=== PATIENT | female | born 1965 | race Caucasian/White ===

== ENCOUNTER → 2017-07-05 | Outpatient (CLI) | payer BC ==
--- NOTE | 2017-07-05 10:16 | RAD ---
Abdominal ultrasound, 07/05/2017: History: Right upper quadrant pain The gallbladder is within normal limits in size. There is no sonographic evidence of cholelithiasis. The gallbladder benson are not thickened. No bile duct dilatation is seen. The liver measures 20.7 cm in craniocaudad extent. It demonstrates mildly increased echogenicity in a diffuse pattern, most commonly due to fatty change. No hepatic mass is evident. In the transverse plane there is a suggestion of a 2 cm hypoechoic process within the pancreatic body. The spleen is of normal size. No renal abnormality is detected. The abdominal aorta and inferior vena cava show no abnormality. No free fluid is evident in the abdomen. IMPRESSION: 1. Mild hepatomegaly with increased hepatic echogenicity suggesting fatty change. 2. Possible pancreatic mass. CT scanning is suggested for further evaluation.
== END | disposition home or self-care (01) ==
LOC: US 07:36
PROVIDERS: ATTEND Specialist
DX: R16.0 Hepatomegaly, not elsewhere classified (principal)
CPT/HCPCS: 76700

== ENCOUNTER → 2017-07-12 | Outpatient (CLI) | payer BC ==
[~2017-07-12] VITALS: Ht 162.6 cm; Wt 111.6 kg
[~2017-07-12] MED LIST: ALPR0.5T PO; BUPR100T7 PO; ESTR1PAT25 TD; HYDR-2165 PO; LOSA1TAB19 PO; NORMAL SALINE IV ONE; SINCALIDE IV ONE
--- NOTE | 2017-07-12 12:58 | RAD ---
Radionuclide hepatobiliary scan with gallbladder ejection fraction, 07/12/2017: History: Right upper quadrant pain Following IV injection of 5.3 mCi of technetium 99m Choletec there was prompt uptake of the radionuclide from the blood stream by the liver. Activity is present in the bile ducts and gallbladder at 15 minutes. Over the first hour there was increasing activity in the gallbladder without extension into the small bowel. Following IV injection of 2.2 mcg of cholecystokinin there was good gallbladder emptying with the gallbladder ejection fraction calculated at 89%. Small bowel activity developed after the cholecystokinin injection. IMPRESSION: 1. No evidence of cystic duct or common bile duct obstruction. 2. The gallbladder ejection fraction is 89%.
== END | disposition home or self-care (01) ==
LOC: NM 08:51
PROVIDERS: ATTEND Family Medicine
DX: R93.5 Abnormal findings on diagnostic imaging of other abdominal regions, including retroperitoneum (principal); R10.11 Right upper quadrant pain
CPT/HCPCS: 78226; 96374; 96375; A9537; J2805

== ENCOUNTER → 2019-03-29 | Outpatient (CLI) | payer BC ==
[~2019-03-29] MED LIST changes: -NORMAL SALINE IV ONE; -SINCALIDE IV ONE
--- NOTE | 2019-03-29 16:43 | RAD ---
CT of the chest without contrast, 03/21/2019: HISTORY: Smoking history Noncontrast scans were obtained utilizing a low-dose technique. There are minimal peripheral reticular and tree-in-bud type opacities posteromedially in the right lower lobe as best seen on images 55 through 65 of series #2. No pulmonary mass or dense consolidation is seen. There is no evidence of pleural fluid. There is mild calcific plaquing of the thoracic aorta without evidence of aneurysm. Several scattered coronary artery calcifications are noted. The heart is not enlarged. Small mediastinal lymph nodes are seen without evidence of pathologic enlargement. Bilateral breast implants are noted. There are mild scattered degenerative changes in the spine. IMPRESSION: 1. Minimal peripheral opacities posteromedially in the right lower lobe may reflect inflammation or scarring. Although a neoplastic etiology is not likely, CT follow-up is suggested. 2. Mild coronary artery calcifications. PQRS Compliance Statement: One or more of the following individualized dose reduction techniques were utilized for this examination: 1. Automated exposure control 2. Adjustment of the mA and/or kV according to patient size 3. Use of iterative reconstruction technique Electronically signed by: Amaury Martines MD (03/29/2019 4:40 PM) [facility]
== END | disposition home or self-care (01) ==
LOC: CT 11:16
PROVIDERS: ATTEND Internal Medicine Pulmonary Disease
DX: Z12.2 Encounter for screening for malignant neoplasm of respiratory organs (principal); I25.10 Atherosclerotic heart disease of native coronary artery without angina pectoris; J98.4 Other disorders of lung; M47.819 Spondylosis without myelopathy or radiculopathy, site unspecified; I10 Essential (primary) hypertension; Z88.8 Allergy status to other drugs, medicaments and biological substances; Z98.82 Breast implant status
CPT/HCPCS: G0297

== ENCOUNTER → 2019-10-14 | Outpatient (CLI) | payer BC ==
--- NOTE | 2019-10-14 08:43 | RAD ---
Examination: Ultrasound abdomen limited HISTORY: History of right upper quadrant pain COMPARISON: 07/05/2017. FINDINGS: The pancreas is poorly visualized. The liver length measures 18.6. There is increased echogenicity identified in the liver likely hepatic steatosis. The common bile duct measures 2.7 mm in diameter.The gallbladder wall thickness measures 1.9 mm. There is echogenicity identified within the gallbladder likely sludge. The right kidney measures 10.9 cm in length. IMPRESSION: 1. Gallbladder sludge. 2. Mild hepatic steatosis. Electronically signed by: Carlo Maloney MD (10/14/2019 8:39 AM) [id number]
== END | disposition home or self-care (01) ==
LOC: US 07:49
PROVIDERS: ATTEND Physician Assistant Surgical
DX: K76.0 Fatty (change of) liver, not elsewhere classified (principal)
CPT/HCPCS: 76705